=== PATIENT | female | born 1950 | race Caucasian/White ===

== ENCOUNTER → 2016-09-23 | Outpatient (CLI) | payer MEDICARE ==
[~2016-09-23] MED LIST: AMIT10TA PO; ASCO-184 PO; ASPI-515 PO; BLUE500T PO; CEFD300C2 PO; DIAZ5TAB PO; FLEC100T PO; GLUC1TAB55 PO; HYDR25TA6 PO; L GA1CAP PO; LOSA1TAB17 PO; LOSA50TA2 PO; LOSA50TA6 PO; METH500T7 PO; METO25TA91 PO; MULT-726 PO; REGADENOSON 0.4 MG/5 ML SYRINGE ONE; RIVA20TA PO
== END | disposition home or self-care (01) ==
LOC: CFH 10:35
PROVIDERS: ATTEND Internal Medicine Cardiovascular Disease
DX: I08.3 Combined rheumatic disorders of mitral, aortic and tricuspid valves (principal); I37.1 Nonrheumatic pulmonary valve insufficiency; I51.7 Cardiomegaly; I10 Essential (primary) hypertension
CPT/HCPCS: 93306

== ENCOUNTER 2016-09-26 16:36 | Emergency (ER) | payer MEDICARE ==
[~2016-09-26] VITALS: Ht 170.2 cm; Wt 99.0 kg
[~2016-09-26 16:36] MED LIST changes: -AMINOPHYLLINE 25 MG/ML, 10ML ONE; -REGADENOSON 0.4 MG/5 ML SYRINGE ONE
[2016-09-26] MEDS ORDERED: SODIUM CHLORIDE FLUSH 10ML SYR IVF ONE (18:00)
[2016-09-26] MEDS ORDERED: SODIUM CHLORIDE 0.9% 1,000ML IVBOLUS ONE (18:00)
[2016-09-26 18:11] LABS: HEMOGLOBIN 15.4 g/dL (11.7-16.4)
[2016-09-26 18:23] LABS: ASPARTATE AMINO TRANSFERASE 19 U/L (15-37); BLOOD UREA NITROGEN 20 mg/dL (7-18)
[2016-09-26 18:30] LABS: IS PT STATUS REG ER OR PRE ER? YES
[2016-09-26 20:50] LABS: IS PT STATUS REG ER OR PRE ER? YES
[2016-09-26 21:38] VITALS: BP 157/91
== END 2016-09-26 21:42 | disposition home or self-care (01) ==
LOC: ED 21:36
DX: R55 Syncope and collapse (principal); I10 Essential (primary) hypertension; I48.91 Unspecified atrial fibrillation; F41.1 Generalized anxiety disorder; Z90.49 Acquired absence of other specified parts of digestive tract
CPT/HCPCS: 36415; 71010; 80053; 83880; 84484; 85025; 85610; 85730; 93005; 99285; J7030

== ENCOUNTER → 2016-09-26 | Outpatient (CLI) | payer MEDICARE ==
[~2016-09-26] MED LIST changes: +AMINOPHYLLINE 25 MG/ML, 10ML ONE
== END | disposition home or self-care (01) ==
LOC: CFH 12:23
PROVIDERS: ATTEND Internal Medicine Cardiovascular Disease
DX: I10 Essential (primary) hypertension (principal); I48.91 Unspecified atrial fibrillation; I34.0 Nonrheumatic mitral (valve) insufficiency; R07.9 Chest pain, unspecified
CPT/HCPCS: 78452; 93017; A9502; J0280; J2785

== ENCOUNTER → 2017-05-30 | Outpatient (CLI) | payer MEDICARE ==
[~2017-05-30] MED LIST changes: -CEFD300C2 PO; +CEFD300C37 PO; +LORA1TAB PO; -LOSA1TAB17 PO; +LOSA1TAB22 PO
== END | disposition home or self-care (01) ==
LOC: CFH 12:03
PROVIDERS: ATTEND Nurse Practitioner Family
DX: Z13.820 Encounter for screening for osteoporosis (principal); M85.9 Disorder of bone density and structure, unspecified; N95.9 Unspecified menopausal and perimenopausal disorder
CPT/HCPCS: 77080

== ENCOUNTER 2017-11-17 10:59 | Emergency (ER) | payer MEDICARE ==
[~2017-11-17] VITALS: Ht 170.2 cm; Wt 112.0 kg
[2017-11-17] MEDS ORDERED: SODIUM CHLORIDE FLUSH 10ML SYR IVF ONE (11:30)
[2017-11-17 11:35] LABS: BASOPHILS # (AUTO) 0.02 x10^3/uL (0-0.1); BASOPHILS % (AUTO) 0 % (0-1); EOSINOPHILS # (AUTO) 0.08 x10^3/uL (0-0.4); EOSINOPHILS % (AUTO) 2 % (1-7); LYMPHOCYTES # (AUTO) 0.78 x10^3/uL (1-3.4); LYMPHOCYTES % (AUTO) 16 % (22-44); MD NO; MEAN CORPUSCULAR HEMOGLOBIN 31.9 pg (27.0-34.8); MEAN CORPUSCULAR HGB CONC 34.9 g/dL (32.4-35.8); MEAN CORPUSCULAR VOLUME 91.6 fL (80-100); MEAN PLATELET VOLUME 7.9 fL (7.4-10.4); MONOCYTES # (AUTO) 0.55 x10^3/uL (0.2-0.8); MONOCYTES % (AUTO) 11 % (2-9); NEUTROPHILS # (AUTO) 3.52 x10^3/uL (1.8-6.8); NEUTROPHILS % (AUTO) 71 % (42-75); PLATELET COUNT 178 x10^3/uL (130-400); RED BLOOD COUNT 5.03 x10^6/uL (3.82-5.3); RED CELL DISTRIBUTION WIDTH 13.7 % (9.6-15.2)
[2017-11-17 11:44] LABS: ALBUMIN 3.7 g/dL (3.4-5.0); ANION GAP 6 mmol/L (5-15); CALCIUM 8.9 mg/dL (8.5-10.1); CHLORIDE 108 mmol/L (98-107); CREATININE 0.85 mg/dL (0.55-1.02)
[2017-11-17] MEDS ORDERED: PROPOFOL 10 MG/ML, 20ML ONE (12:09)
[2017-11-17] MEDS ORDERED: MIDAZOLAM 1 MG/ML, 2ML ONE ×2 (12:24→12:33)
[2017-11-17 14:33] VITALS: BP 101/62
== END 2017-11-17 14:35 | disposition home or self-care (01) ==
LOC: ED 13:13
DX: D68.8 Other specified coagulation defects (principal); I10 Essential (primary) hypertension; I48.2 Chronic atrial fibrillation; Z90.49 Acquired absence of other specified parts of digestive tract
CPT/HCPCS: 36415; 71045; 80048; 82040; 83880; 84484; 85025; 92960; 93005

== ENCOUNTER → 2017-12-17 | Outpatient (CLI) | payer MEDICARE | LOC: CFH 14:32 | PROVIDERS: ATTEND Internal Medicine Cardiovascular Disease | DX: I34.0 Nonrheumatic mitral (valve) insufficiency (principal); I48.0 Paroxysmal atrial fibrillation | CPT/HCPCS: 93306 ==

== ENCOUNTER → 2019-09-02 | Outpatient (CLI) | payer MEDICARE ==
[~2019-09-02] MED LIST changes: +LOSA50TA14 PO; -LOSA50TA6 PO; +REGADENOSON 0.4 MG/5 ML SYRINGE ONE
== END | disposition home or self-care (01) ==
LOC: CFH 11:50
PROVIDERS: ATTEND Internal Medicine Cardiovascular Disease
DX: I48.0 Paroxysmal atrial fibrillation (principal); I35.1 Nonrheumatic aortic (valve) insufficiency
CPT/HCPCS: 78452; A9502; J2785

== ENCOUNTER 2020-02-04 12:13 | Emergency (ER) | payer MEDICARE ==
[~2020-02-04] VITALS: Ht 170.2 cm; Wt 121.5 kg
[~2020-02-04 12:13] MED LIST changes: -REGADENOSON 0.4 MG/5 ML SYRINGE ONE
[2020-02-04] MEDS ORDERED: FLEC150T PO (12:33)
[2020-02-04] MEDS ORDERED: METOPROLOL PO (12:35)
[2020-02-04] MEDS ORDERED: AMLO-150 PO (12:37)
[2020-02-04] MEDS ORDERED: ASCO-184 PO (12:44)
[2020-02-04] MEDS ORDERED: DOCU-131 PO (12:44)
[2020-02-04] MEDS ORDERED: CHOL10003 PO (12:44)
[2020-02-04] MEDS ORDERED: PHILLIPS PROBIOTIC PO (12:44)
[2020-02-04] MEDS ORDERED: MV M PO (12:44)
[2020-02-04] MEDS ORDERED: [UNRECOGNIZED DRUG - OTHER] PO (12:44)
[2020-02-04] MEDS ORDERED: MAGNESIUM PO (12:44)
[2020-02-04] MEDS ORDERED: DILTIAZEM 5 MG/ML, 5ML ONE (13:17)
[2020-02-04 13:25] LABS: BASOPHILS # (AUTO) 0.02 x10^3/uL (0-0.1); BASOPHILS % (AUTO) 0 % (0-1); EOSINOPHILS # (AUTO) 0.03 x10^3/uL (0-0.4); EOSINOPHILS % (AUTO) 1 % (1-7); LYMPHOCYTES # (AUTO) 0.69 x10^3/uL (1-3.4); LYMPHOCYTES % (AUTO) 13 % (22-44); MD NO; MEAN CORPUSCULAR HEMOGLOBIN 31.2 pg (27.0-34.8); MEAN CORPUSCULAR HGB CONC 33.9 g/dL (32.4-35.8); MEAN CORPUSCULAR VOLUME 92.3 fL (80-100); MEAN PLATELET VOLUME 7.9 fL (7.4-10.4); MONOCYTES # (AUTO) 0.44 x10^3/uL (0.2-0.8); MONOCYTES % (AUTO) 8 % (2-9); NEUTROPHILS # (AUTO) 4.36 x10^3/uL (1.8-6.8); NEUTROPHILS % (AUTO) 79 % (42-75); PLATELET COUNT 197 x10^3/uL (130-400); RED CELL DISTRIBUTION WIDTH 13.7 % (9.6-15.2)
[2020-02-04] MEDS ORDERED: SODIUM CHLORIDE FLUSH 10ML SYR IVF ONE (13:30)
[2020-02-04] MEDS ORDERED: DILTIAZEM 5 MG/ML, 5ML IV ONE (13:30)
[2020-02-04 13:35] LABS: ALANINE AMINOTRANSFERASE 28 U/L (12-78); ALBUMIN 3.6 g/dL (3.4-5.0); ANION GAP 4 mmol/L (5-15); CALCIUM 8.9 mg/dL (8.5-10.1); CHLORIDE 109 mmol/L (98-107)
[2020-02-04 13:45] LABS: ALKALINE PHOSPHATASE 82 U/L (45-117); BILIRUBIN,TOTAL 0.5 mg/dL (0.2-1.0); CREATININE 0.93 mg/dL (0.55-1.02); TOTAL PROTEIN 7.8 g/dL (6.4-8.2)
[2020-02-04 15:14] VITALS: BP 123/89
== END 2020-02-04 15:16 | disposition home or self-care (01) ==
LOC: ED 13:02
DX: I48.20 Chronic atrial fibrillation, unspecified (principal); R00.2 Palpitations; I10 Essential (primary) hypertension; R07.89 Other chest pain; R53.1 Weakness; R53.83 Other fatigue; Z90.49 Acquired absence of other specified parts of digestive tract
CPT/HCPCS: 36415; 71045; 80053; 83036; 84443; 85025; 93005; 96374; 99285

== ENCOUNTER → 2020-02-17 | Outpatient (CLI) | payer MEDICARE ==
[~2020-02-17] MED LIST changes: +AMLO-150 PO; +CHOL10003 PO; +DOCU-131 PO; +FLEC150T PO; +MAGNESIUM PO; +METOPROLOL PO; +MV M PO; +PHILLIPS PROBIOTIC PO; +[UNRECOGNIZED DRUG - OTHER] PO
== END | disposition home or self-care (01) ==
LOC: STAR 10:11
PROVIDERS: ATTEND Anesthesiology
DX: Z01.818 Encounter for other preprocedural examination (principal); Z11.59 Encounter for screening for other viral diseases
CPT/HCPCS: 36415; 87635

== ENCOUNTER 2020-02-21 06:09 | Day surgery (SDC) | payer MEDICARE ==
[~2020-02-21] VITALS: Ht 170.2 cm; Wt 120.5 kg
[2020-02-21 06:28] VITALS: BP 133/92
[2020-02-21] MEDS ORDERED: METO-93 PO (06:41)
[2020-02-21 07:06] LABS: ANION GAP 9 mmol/L (5-15); CALCIUM 9.1 mg/dL (8.5-10.1); CHLORIDE 106 mmol/L (98-107); CREATININE 1.06 mg/dL (0.55-1.02)
[2020-02-21] MEDS ORDERED: PROPOFOL 10 MG/ML, 100ML IV ONE (07:31)
== END 2020-02-21 08:46 | disposition home or self-care (01) ==
LOC: CACL 06:09
PROVIDERS: ATTEND Internal Medicine Cardiovascular Disease
DX: I48.0 Paroxysmal atrial fibrillation (principal); I08.0 Rheumatic disorders of both mitral and aortic valves; I10 Essential (primary) hypertension; F32.9 Major depressive disorder, single episode, unspecified; F41.9 Anxiety disorder, unspecified; R73.01 Impaired fasting glucose; E66.9 Obesity, unspecified; Z68.41 Body mass index [BMI] 40.0-44.9, adult; Z79.01 Long term (current) use of anticoagulants; Z79.899 Other long term (current) drug therapy
CPT/HCPCS: 36415; 80048; 92960; 93005; J2704

== ENCOUNTER → 2020-05-18 | Outpatient (CLI) | payer MEDICARE ==
[~2020-05-18] MED LIST changes: +METO-93 PO
== END | disposition home or self-care (01) ==
LOC: CVU 09:40
PROVIDERS: ATTEND Internal Medicine Cardiovascular Disease
DX: I35.1 Nonrheumatic aortic (valve) insufficiency (principal); I10 Essential (primary) hypertension; I31.3 Pericardial effusion (noninflammatory); I48.0 Paroxysmal atrial fibrillation
CPT/HCPCS: 93306

== ENCOUNTER 2020-07-21 15:48 | Emergency (ER) | payer MEDICARE ==
[~2020-07-21] VITALS: Ht 170.2 cm; Wt 122.0 kg
[~2020-07-21 15:48] MED LIST changes: -ASPI-515 PO; +ASPI-963 PO; +METH-639 PO; -METH500T7 PO
--- NOTE | 2020-07-21 15:58 | NUR ---
PT BIBA. PER EMS PT HAS HX OF AFIB AND FELT HER HR WAS FAST TODAY AROUND 0830. PT CALLED HER DOCTOR AND WAS INSTRUCTED TO TAKE HER SECOND DOSE OF METOPROLOL EARLY TODAY, SO SHE HAS HAD 50 MG TOTAL. PER EMS THEY DID A 12 LEAD THAT SHOWED SINUS TACH AT 126. PER PT SHE CONSISTENTLY TAKES HER XARELTO PRESCRIBED. EKG DONE. PT IN [facility], MONITORING IN PLACE, [place] AT THIS TIME, HR CURRENTLY AT 126, PER PT NO NEEDS AT THIS TIME, WCTM.
[2020-07-21] MEDS ORDERED: METOPROLOL 1 MG/ML, 5ML ONE ×3 (16:21→17:06)
[2020-07-21] MEDS: METOPROLOL 1 MG/ML, 5ML IVPush PRN ×3 (16:26→17:08)
[2020-07-21 16:44] LABS: BASOPHILS % (AUTO) 1 % (0-1); EOSINOPHILS % (AUTO) 1 % (1-7); LYMPHOCYTES % (AUTO) 16 % (22-44); MEAN CORPUSCULAR HEMOGLOBIN 32.2 pg (27.0-34.8); MEAN CORPUSCULAR HGB CONC 34.4 g/dL (32.4-35.8); MEAN PLATELET VOLUME 7.3 fL (7.4-10.4); MONOCYTES % (AUTO) 11 % (2-9); NEUTROPHILS % (AUTO) 71 % (42-75); PLATELET COUNT 214 x10^3/uL (130-400); RED BLOOD COUNT 4.68 x10^6/uL (3.82-5.3); RED CELL DISTRIBUTION WIDTH 14.4 % (9.6-15.2)
[2020-07-21 16:46] LABS: MD NO
[2020-07-21 16:54] LABS: ALANINE AMINOTRANSFERASE 31 U/L (12-78); ALBUMIN 3.2 g/dL (3.4-5.0); ANION GAP 5 mmol/L (5-15); CALCIUM 8.6 mg/dL (8.5-10.1); CHLORIDE 108 mmol/L (98-107); CREATININE 0.93 mg/dL (0.55-1.02)
[2020-07-21 16:56] LABS: ALKALINE PHOSPHATASE 60 U/L (45-117); BILIRUBIN,TOTAL 0.5 mg/dL (0.2-1.0)
--- NOTE | 2020-07-21 17:34 | NUR ---
PT RESTING IN [facility], MONITORING IN PLACE, MEDICATED PER EMAR, PER PT NO NEEDS AT THIS TIME, NADN AT THIS TIME. WCTM.
[2020-07-21] MEDS ORDERED: PROPOFOL 10 MG/ML, 20ML ONE (19:09)
[2020-07-21] MEDS ORDERED: PROPOFOL 10 MG/ML, 20ML IVPush ONE (19:30)
[2020-07-21 19:58] VITALS: BP 133/78
--- NOTE | 2020-07-21 19:59 | NUR ---
Pt tolerated cardioversion well. Now in NSR, VSS, pt denies SOB, CP, pt denies lightheadedness or dizziness. Pt denies any needs at this time.
--- NOTE | 2020-07-21 20:30 | NUR ---
PT AMBULATED TO DISCHARGE DESK STEADILY, SON PICKING HER UP VIA POV. DISCHARGE INSTRUCTIONS AND EDUCATION GIVEN, PT VERBALIZED UNDERSTANDING.
== END 2020-07-21 20:46 | disposition home or self-care (01) ==
LOC: ED 17:02
DX: I48.92 Unspecified atrial flutter (principal); R00.2 Palpitations; R53.1 Weakness; I10 Essential (primary) hypertension; I48.91 Unspecified atrial fibrillation; R00.0 Tachycardia, unspecified
CPT/HCPCS: 36415; 80053; 85025; 92960; 93005; 99152; 99285

== ENCOUNTER → 2021-02-06 | Outpatient (CLI) | payer MEDICARE ==
[~2021-02-06] MED LIST changes: +DRON400T6 PO; +LORA-446 PO; +OMNIPAQUE 350 MG/ML, 150 ML BOTTLE ONE
== END | disposition home or self-care (01) ==
LOC: CFH 12:00
PROVIDERS: ATTEND Internal Medicine Cardiovascular Disease
DX: I48.0 Paroxysmal atrial fibrillation (principal); I34.0 Nonrheumatic mitral (valve) insufficiency
CPT/HCPCS: 75572; 82565; Q9967

== ENCOUNTER 2021-02-08 06:10 | Observation (INO) | payer MEDICARE ==
[~2021-02-08] VITALS: Ht 170.2 cm; Wt 120.6 kg
[~2021-02-08 06:10] MED LIST changes: -DRON400T6 PO; -LORA-446 PO; -OMNIPAQUE 350 MG/ML, 150 ML BOTTLE ONE
[2021-02-08] MEDS ORDERED: SODIUM CHLORIDE 0.9% 1,000 ML IV ONE (07:00)
[2021-02-08] MEDS ORDERED: SODIUM CHLORIDE 0.9% 1,000 ML IV SCH (07:00)
[2021-02-08] MEDS ORDERED: RIVA20TA PO (07:01)
[2021-02-08] MEDS ORDERED: DRON400T6 PO (07:01)
[2021-02-08] MEDS ORDERED: CHOL10003 PO (07:01)
[2021-02-08] MEDS ORDERED: LORA-446 PO (07:01)
[2021-02-08 07:27] LABS: BASOPHILS % (AUTO) 0 % (0-1); EOSINOPHILS % (AUTO) 1 % (1-7); LYMPHOCYTES % (AUTO) 13 % (22-44); MEAN CORPUSCULAR HEMOGLOBIN 31.7 pg (27.0-34.8); MEAN CORPUSCULAR HGB CONC 34.6 g/dL (32.4-35.8); MEAN PLATELET VOLUME 7.3 fL (7.4-10.4); MONOCYTES % (AUTO) 12 % (2-9); NEUTROPHILS % (AUTO) 75 % (42-75); PLATELET COUNT 194 x10^3/uL (130-400); RED BLOOD COUNT 4.92 x10^6/uL (3.82-5.3); RED CELL DISTRIBUTION WIDTH 13.7 % (9.6-15.2)
[2021-02-08] MEDS ORDERED: MIDAZOLAM 1 MG/ML, 2ML ONE (07:32)
[2021-02-08] MEDS ORDERED: FENTANYL PF 250 MCG/5ML ONE (07:33)
[2021-02-08 07:36] LABS: ANION GAP 7 mmol/L (5-15); CALCIUM 9.2 mg/dL (8.5-10.1); CHLORIDE 109 mmol/L (98-107); CREATININE 0.83 mg/dL (0.55-1.02)
[2021-02-08] MEDS ORDERED: LIDOCAINE 2%, 20ML ONE (08:10)
[2021-02-08] MEDS ORDERED: EPHEDRINE 50 MG/ML, 1ML ONE (08:14)
[2021-02-08] MEDS ORDERED: DEXAMETHASONE 4 MG/ML, 1ML ONE ×2 (08:40→08:46)
[2021-02-08] MEDS ORDERED: HEPARIN 1,000 UNITS/ML, 10ML ONE ×2 (08:45→08:46)
[2021-02-08] MEDS ORDERED: PROPOFOL 10 MG/ML, 20ML ONE (08:45)
[2021-02-08] MEDS ORDERED: ROCURONIUM 10MG/ML,5ML ONE (08:46)
[2021-02-08] MEDS ORDERED: ONDANSETRON 2MG/ML, 2ML ONE ×2 (12:03→12:46)
[2021-02-08] MEDS ORDERED: EPHEDRINE 50 MG/ML, 1ML IVPush PRN (12:30)
[2021-02-08] MEDS ORDERED: MIDAZOLAM 1 MG/ML, 2ML IV PRN (12:30)
[2021-02-08] MEDS ORDERED: ONDANSETRON 2MG/ML, 2ML IVPush PRN ×2 (12:30)
[2021-02-08] MEDS ORDERED: OXYcodone 5 MG/5 ML ORAL.SOL UDC PO PRN (12:30)
[2021-02-08] MEDS ORDERED: PROMETHAZINE 12.5 MG SUPP PR PRN (12:30)
[2021-02-08] MEDS ORDERED: hydrALAzine 20 MG/ML, 1ML IV PRN (12:30)
[2021-02-08] MEDS ORDERED: FENTANYL PF 100 MCG/2ML IV PRN (12:30)
[2021-02-08] MEDS ORDERED: LORazepam 2 MG/ML, 1ML IVPush PRN (12:30)
[2021-02-08] MEDS ORDERED: ALBUTEROL SULFATE 2.5 MG/3 ML NPPB PRN (12:30)
[2021-02-08] MEDS ORDERED: LORazepam 1MG TABLET PO PRN (12:30)
[2021-02-08] MEDS ORDERED: ZOLPIDEM 5MG TABLET PO PRN (12:30)
[2021-02-08] MEDS ORDERED: PROMETHAZINE 25 MG/ML, 1ML IVPush PRN (12:30)
[2021-02-08] MEDS ORDERED: ACETAMINOPHEN 325 MG TABLET PO PRN ×2 (12:30)
[2021-02-08] MEDS ORDERED: LABETALOL 5MG/ML, 20ML IV PRN (12:30)
[2021-02-08] MEDS ORDERED: DIPHENHYDRAMINE 50 MG/ML, 1ML IVPush PRN ×2 (12:30)
[2021-02-08] MEDS ORDERED: HYDROmorphone 1 MG/ML, 1ML INJ IVPush PRN (12:30)
[2021-02-08] MEDS ORDERED: DIAZEPAM 5 MG/ML, 2ML IVPush PRN (12:30)
[2021-02-08] MEDS ORDERED: MEPERIDINE/PF 25MG/0.5ML IVPush PRN (12:30)
[2021-02-08] MEDS ORDERED: RIVAROXABAN 20 MG TABLET PO ONE (13:00)
[2021-02-08] MEDS ORDERED: PROMETHAZINE 25 MG/ML, 1ML ONE (13:03)
[2021-02-08 13:57] VITALS: BP 103/60
[2021-02-08 20:44] VITALS: BP 106/68
[2021-02-08] MEDS: DRONEDARONE 400MG TABLET PO SCH (20:56)
[2021-02-08] MEDS: COLCHICINE 0.6 MG CAPSULE PO SCH (20:56)
[2021-02-08] MEDS: LOSARTAN 50MG TABLET PO SCH (20:56)
[2021-02-08] MEDS ORDERED: METOPROLOL SUCCINATE 100 MG TAB.ER.24H PO SCH (21:00)
[2021-02-08 21:47] VITALS: BP 111/71
[2021-02-09 01:41] VITALS: BP 109/72
[2021-02-09 07:47] VITALS: BP 112/73
[2021-02-09] MEDS ORDERED: RIVAROXABAN 20 MG TABLET PO SCH (08:00)
[2021-02-09] MEDS: LOSARTAN 50MG TABLET PO SCH ×2 (08:33→08:36)
[2021-02-09] MEDS: COLCHICINE 0.6 MG CAPSULE PO SCH (08:33)
[2021-02-09] MEDS: DRONEDARONE 400MG TABLET PO SCH (08:33)
[2021-02-09] MEDS: AMLODIPINE 5 MG TABLET PO SCH ×2 (08:33→08:36)
[2021-02-09] MEDS ORDERED: CHOLECALCIFEROL 1,000 UNIT TABLET PO SCH (09:00)
[2021-02-09] MEDS ORDERED: DOCUSATE 100 MG CAPSULE PO SCH (09:00)
[2021-02-09] MEDS ORDERED: COLC0.6C3 PO (09:32)
== END 2021-02-09 13:40 | disposition home or self-care (01) ==
LOC: CACL 06:10 → ORIP 12:07 → 5SO 13:42
PROVIDERS: ADMIT Internal Medicine Cardiovascular Disease; ATTEND Internal Medicine Cardiovascular Disease
DX: I48.91 Unspecified atrial fibrillation (principal); Z20.822 Contact with and (suspected) exposure to COVID-19; I48.4 Atypical atrial flutter; I10 Essential (primary) hypertension; E66.9 Obesity, unspecified; Z79.01 Long term (current) use of anticoagulants; Z79.899 Other long term (current) drug therapy
CPT/HCPCS: 36415; 80048; 85025; 85347; 93308; 93312; 93325; 93613; 93655; 93656; 93657; 93662; C1730; C1732; C1759; C1766; C1893; C1894; G0378; J1100; J1644; J2250; J2405; J2550; J2704; J3010; J3490; U0003; U0005